=== PATIENT | female | born 1990 | race Caucasian/White ===

== ENCOUNTER 2022-12-30 12:25 | Emergency (ER) | payer OTHER, SELFPAY ==
--- NOTE | 2022-12-30 13:15 | RAD REPORT ---
EXAM DESCRIPTION: US - Abdomen Exam Limited - 12/30/2022 12:53 pm CLINICAL HISTORY: Abdominal pain. COMPARISON: None. FINDINGS: Patient was not NPO limiting evaluation somewhat. Gallbladder mildly contracted. Gallbladder wall not thickened. A gallstone is not seen The biliary tree is normal caliber. IMPRESSION: Unremarkable gallbladder ultrasound.
--- NOTE | 2022-12-30 13:21 | RAD REPORT ---
EXAM DESCRIPTION: [place] Single View12/30/2022 1:04 pm CLINICAL HISTORY: Shortness of breath COMPARISON: none FINDINGS: The lungs appear clear of acute infiltrate. The heart is normal size IMPRESSION: No acute abnormalities displayed
[2022-12-30 13:51] LABS: Specific Gravity 1.008 (1.005-1.030); Urine Bilirubin NEGATIVE (Negative); Urine Blood Negative (Negative); Urine Clarity Clear (Clear); Urine Color Colorless (Yellow); Urine Glucose NEGATIVE (Negative); Urine Protein NEGATIVE (Negative); Urine Urobilinogen Normal (Normal); Urine pH 5.5 (5.0-7.0)
[2022-12-30 13:53] LABS: Specific Gravity 1.008 (1.005-1.030)
[2022-12-30] MEDS ORDERED: KETOROLAC 30 MG/ML INJ ONE (14:02)
[2022-12-30] MEDS ORDERED: ONDANSETRON 4 MG/2 ML VIAL ONE (14:02)
[2022-12-30] MEDS ORDERED: FAMOTIDINE 20 MG/2 ML VIAL IV ONE (14:02)
[2022-12-30] MEDS ORDERED: NA CHLORIDE 0.9% 1,000 ML ONE (14:02)
[2022-12-30 14:10] LABS: Absolute Lymphocytes (CBC) 1.3 K/uL (0.7-4.9); Hematocrit 39.9 % (36.0-45.0); MCV 88.6 fL (80-100); MPV 7.9 fL (7.6-11.3); RBC Red Blood Cell Count 4.51 M/uL (3.86-4.86)
[2022-12-30 14:27] LABS: ALT/SGPT 22 U/L (13-56); Albumin 4.2 g/dL (3.4-5.0); Alkaline Phosphatase 45 U/L (45-117); BUN Blood Urea Nitrogen 15 mg/dL (7-18); Bicarbonate 27 mEq/L (21-32); Bilirubin Total 0.4 mg/dL (0.2-1.0); Glomerular Filtration Rate 82 ml/min (=/>90); Glucose Level 94 mg/dL (74-106); Lipase 54 U/L (13-75); Protein, Total 7.8 g/dL (6.4-8.2); Sodium Level 137 mEq/L (136-145)
[2022-12-30 14:28] LABS: AST/SGOT 14 U/L (15-37); Troponin High Sensitivity < 3.0 pg/mL (<58.9)
--- NOTE | 2022-12-30 15:41 | EDPHYS ---
Physician Documentation [facility] Name: Emani Wilson Age: 32 yrs Sex: Female : 1990 Arrival Date: 12/30/2022 Time: 12:25 Bed 11 Private MD: ED Physician Roman Hare HPI: 12/30 12:40 This 32 yrs old Female presents to ER via Ambulatory with complaints of Abdominal Pain. kb 12:40 The patient presents with abdominal pain in the epigastric area, in the upper abdomen. kb Onset: The symptoms/episode began/occurred 1 week(s) ago. The symptoms do not radiate. Associated signs and symptoms: Pertinent positives: nausea, Pertinent negatives: constipation, diarrhea, fever, vomiting. The symptoms are described as constant. Modifying factors: The symptoms are alleviated by nothing, the symptoms are aggravated by nothing. Severity of pain: At its worst the pain was moderate in the emergency department the pain is unchanged. The patient has not experienced similar symptoms in the past. The patient has not recently seen a physician. LMFT: 12:34 LMP 12/03/2022 aa5 Historical: - Allergies: 12:32 No Known Allergies; aa5 - PMHx: 12:32 "small leak in heart"; Hypoglycemia; Anxiety; aa5 - PSHx: 12:32 section; aa5 - Immunization history:: Adult Immunizations unknown. - Social history:: Smoking status: Patient denies any tobacco usage or history of. ROS: 12:40 Constitutional: Negative for fever, chills, and weight loss. kb 12:40 Abdomen/GI: Positive for abdominal pain, nausea. 12:40 All other systems are negative. Exam: 12:40 Constitutional: This is a well developed, well nourished patient who is awake, alert, kb and in no acute distress. Head/Face: Normocephalic, atraumatic. ENT: Moist Mucous membranes Cardiovascular: Regular rate and rhythm with a normal S1 and S2. No gallops, murmurs, or rubs. No pulse deficits. Respiratory: Respirations even and unlabored. No increased work of breathing. Talking in full sentences Skin: Warm, dry with normal turgor. Normal color. MS/ Extremity: Pulses equal, no cyanosis. Neurovascular intact. Full, normal range of motion. Neuro: Awake and alert, GCS 15, oriented to person, place, time, and situation. Moves all extremities. Normal gait. 12:40 Abdomen/GI: Inspection: abdomen appears normal, Bowel sounds: normal, Palpation: soft, in all quadrants, mild abdominal tenderness, in the epigastric area, right upper quadrant and left upper quadrant. 16:08 ECG was reviewed by the Attending Physician. kb Vital Signs: 12:31 BP 128 / 98; Pulse 105; Resp 19 S; Temp 98.2(TE); Pulse Ox 100% on R/A; Weight 62.14 kg aa5 (R); Height 5 ft. 1 in. (R); 15:19 BP 124 / 82; Pulse 94; Resp 16; Pulse Ox 99% ; ko1 12:31 Body Mass Index 25.89 (62.14 kg, 154.94 cm) aa5 MDM: 12:27 Patient medically screened. kb 12:40 Differential diagnosis: cholecystitis, Cholelithiasis, gastroesophageal reflux disease, kb non-specific abd pain. Data reviewed: vital signs, nurses notes. 15:39 Counseling: I had a detailed discussion with the patient and/or guardian regarding: the kb historical points, exam findings, and any diagnostic results supporting the discharge/admit diagnosis, lab results, radiology results, the need for outpatient follow up, a family practitioner, a coal trimmer, to return to the emergency department if symptoms worsen or persist or if there are any questions or concerns that arise at home. ED course: Pt nontoxic in appearance, feeling better, tolerating po intake. States she is ready to go home. Reviewed all diagnostic results and printed copy given. Educated on return precautions and need for follow up. 12/30 12:34 Order name: CBC with Diff kb 12/30 12:34 Order name: CMP; Complete Time: 14:56 kb 12/30 12:34 Order name: Lipase; Complete Time: 14:56 kb 12/30 12:34 Order name: Test, Urine; Complete Time: 13:54 kb 12/30 12:34 Order name: Urinalysis w/ reflexes; Complete Time: 13:54 kb 12/30 12:34 Order name: Troponin High Sensitivity; Complete Time: 14:56 kb 12/30 12:34 Order name: Abdomen Limited US; Complete Time: 13:16 kb 12/30 12:34 Order name: Chest Single View XRAY; Complete Time: 13:22 kb 12/30 12:34 Order name: EKG; Complete Time: 12:34 kb 12/30 12:34 Order name: IV Saline Lock; Complete Time: 13:53 kb 12/30 12:34 Order name: Labs collected and sent; Complete Time: 13:53 kb 12/30 12:34 Order name: EKG - Nurse/Tech; Complete Time: 14:37 kb EC:08 Rate is 69 beats/min. Rhythm is regular. QRS [place] is Normal. [place] interval is normal at kb 124 msec. QRS interval is normal at 86 msec. QT interval is normal at 424 msec. Administered Medications: 14:11 Drug: NS 0.9% IV 1000 ml Route: IV; Rate: 1 bolus; Site: left antecubital; ko1 14:11 Drug: TORadol - Ketorolac IVP 15 mg Route: IVP; Site: left antecubital; ko1 14:15 Drug: Famotidine IVP 20 mg Route: IVP; Site: left antecubital; ko1 14:15 Drug: Ondansetron IVP 4 mg Route: IVP; Site: left antecubital; ko1 Disposition Summary: 12/30/22 15:40 Discharge Ordered Location: Home kb Condition: Stable kb Diagnosis - Nausea with vomiting, unspecified kb - Upper abdominal pain, unspecified kb Followup: kb - With: Emergency Department - When: As needed - Reason: Worsening of condition Followup: kb - With: Private Physician - When: 2 - 3 days - Reason: Recheck today's complaints, Continuance of care, Re-evaluation by your physician Discharge Instructions: - Discharge Summary Sheet kb - Nausea and Vomiting, Adult, [id number] kb - Abdominal Pain, Adult, [id number] kb Forms: - Medication Reconciliation Form kb - Thank You Letter kb - Antibiotic Education kb - Prescription Opioid Use kb Prescriptions: - ondansetron 4 mg Oral Tablet,disintegrating - take 1 tablet by ORAL route every 6 hours As needed; 12 tablet; Refills: 0, kb Product Selection Permitted - dicyclomine 20 mg Oral Tablet - take 1 tablet by ORAL route 4 times per day As needed; 20 tablet; Refills: 0, kb Product Selection Permitted Signatures: Dispatcher [employer] EDMary Ellen Way FNP-C FNP-Ivania Sullivan, RN RN aa5 Joanna Casper, RN RN ko1
--- NOTE | 2022-12-30 15:41 | ER ---
Nurse's Notes [facility] Name: Emani Wilson Age: 32 yrs Sex: Female : 1990 Arrival Date: 12/30/2022 Time: 12:25 Bed 11 Private MD: Diagnosis: Nausea with vomiting, unspecified;Upper abdominal pain, unspecified Presentation: 12/30 12:31 Chief complaint: Patient states: abd pain for approximately 1 week ago. Pt reports aa5 nausea, denies vomiting. Coronavirus screen: nausea. Ebola Screen: Patient denies travel to an Ebola-affected area in the 21 days before illness onset. Initial Sepsis Screen: Does the patient meet any 2 criteria? No. Patient's initial sepsis screen is negative. Does the patient have a suspected source of infection? No. Patient's initial sepsis screen is negative. Risk Assessment: Do you want to hurt yourself or someone else? Patient reports no desire to harm self or others. Onset of symptoms was November 2022. 12:31 Acuity: VERA 3 aa5 12:31 Method Of Arrival: Ambulatory aa5 STRUCTURAL ARCHITECT: 12:34 LMP 12/03/2022 aa5 Historical: - Allergies: 12:32 No Known Allergies; aa5 - PMHx: 12:32 "small leak in heart"; Hypoglycemia; Anxiety; aa5 - PSHx: 12:32 section; aa5 - Immunization history:: Adult Immunizations unknown. - Social history:: Smoking status: Patient denies any tobacco usage or history of. Screenin:00 [facility] ED Fall Risk Assessment (Adult) History of falling in the last 3 months, ko1 including since admission No falls in past 3 months (0 pts) Confusion or Disorientation No (0 pts) Intoxicated or Sedated No (0 pts) Impaired Gait No (0 pts) Mobility Assist Device Used No (0 pt) Altered Elimination No (0 pt) Score/Fall Risk Level 0 - 2 = Low Risk Oriented to surroundings, Maintained a safe environment, Educated pt \\T\\ family on fall prevention, incl call for assistance when getting out of bed, Assessed \\T\\ reinforced patient's understanding of fall precautions, Provided non-skid footwear, Hourly rounding (assess needs \\T\\ fall precautionary measures) done, Used ambulatory aids as needed (educated on \\T\\ assisted with), Used gait belt as appropriate. Abuse screen: Denies threats or abuse. Denies injuries from another. Nutritional screening: No deficits noted. Tuberculosis screening: No symptoms or risk factors identified. Assessment: 14:00 General: Appears in no apparent distress. uncomfortable, Behavior is calm, cooperative, ko1 appropriate for age. Pain: Complains of pain in abdomen. Neuro: No deficits noted. Cardiovascular: No deficits noted. Respiratory: No deficits noted. GI: Reports lower abdominal pain, upper abdominal pain. : No deficits noted. EENT: No deficits noted. Derm: No deficits noted. Musculoskeletal: No deficits noted. Vital Signs: 12:31 BP 128 / 98; Pulse 105; Resp 19 S; Temp 98.2(TE); Pulse Ox 100% on R/A; Weight 62.14 kg aa5 (R); Height 5 ft. 1 in. (R); 15:19 BP 124 / 82; Pulse 94; Resp 16; Pulse Ox 99% ; ko1 12:31 Body Mass Index 25.89 (62.14 kg, 154.94 cm) aa5 ED Course: 12:26 Patient arrived in ED. brian 12:26 Roman Hare MD is Attending Physician. brian 12:26 Mary Ellen Matamoros FNP-C is PHCP. kb 12:31 Arm band placed on. aa5 12:32 Triage completed. aa5 12:55 Abdomen Limited US In Process Unspecified. EDMS 13:06 Chest Single View XRAY In Process Unspecified. EDMS 13:36 Joanna Casper, RN is Primary Nurse. ko1 13:44 Test, Urine Sent. ko1 13:44 Urinalysis w/ reflexes Sent. ko1 13:45 Inserted saline lock: 22 gauge in left antecubital area, using aseptic technique. Blood ko1 collected. 13:53 CBC with Diff Sent. ko1 13:53 CMP Sent. ko1 13:53 Lipase Sent. ko1 13:53 Troponin High Sensitivity Sent. ko1 14:00 Patient has correct armband on for positive identification. Bed in low position. Call ko1 light in reach. Side rails up X 1. Pulse ox on. NIBP on. Warm blanket given. 14:00 No provider procedures requiring assistance completed. ko1 15:58 IV discontinued, intact, bleeding controlled, No redness/swelling at site. Pressure ko1 dressing applied. Administered Medications: 14:11 Drug: NS 0.9% IV 1000 ml Route: IV; Rate: 1 bolus; Site: left antecubital; ko1 14:11 Drug: TORadol - Ketorolac IVP 15 mg Route: IVP; Site: left antecubital; ko1 14:15 Drug: Famotidine IVP 20 mg Route: IVP; Site: left antecubital; ko1 14:15 Drug: Ondansetron IVP 4 mg Route: IVP; Site: left antecubital; ko1 Medication: 14:00 VIS not applicable for this client. ko1 Outcome: 15:40 Discharge ordered by . partha 15:58 Discharged to home ambulatory, with family. ko1 15:58 Condition: improved 15:58 Discharge instructions given to patient, family, Instructed on discharge instructions, follow up and referral plans. medication usage, Demonstrated understanding of instructions, follow-up care, medications, Prescriptions given X 2. 15:58 Patient left the ED. ko1 Signatures: Dispatcher [employer] EDMS Mary Ellen Matamoros, NEEDLEWORKER-C NEEDLEWORKER-Roman Mckeon MD MD cha Calderon, Audri, RN RN aa5 Joanna Casper, RN RN ko1
[2022-12-30 16:03] VITALS: TEMP 98.2
[2022-12-30 16:05] VITALS: BP 124/82; O2SAT 99
== END 2022-12-30 15:58 | disposition home or self-care (01) ==
LOC: ER 12:25
DX: R11.2 Nausea with vomiting, unspecified (principal); R10.13 Epigastric pain
CPT/HCPCS: 36415; 71045; 76705; 80053; 81003; 81025; 83690; 84484; 85025; 96374; 96375; 99284; J2405; J7030

== ENCOUNTER 2023-01-20 22:26 | Emergency (ER) | payer SELFPAY ==
[2023-01-20 23:44] LABS: Specific Gravity 1.016 (1.005-1.030); Urine Bilirubin NEGATIVE (Negative); Urine Blood Negative (Negative); Urine Clarity Clear (Clear); Urine Color Colorless (Yellow); Urine Glucose NEGATIVE (Negative); Urine Protein NEGATIVE (Negative); Urine Urobilinogen Normal (Normal)
[2023-01-20 23:51] LABS: Specific Gravity 1.016 (1.005-1.030)
--- NOTE | 2023-01-21 00:18 | ER ---
Nurse's Notes [facility] Name: Emani Wilson Age: 32 yrs Sex: Female : 1990 Arrival Date: 01/20/2023 Time: 22:26 Bed 17 Private MD: Diagnosis: Urinary frequency Presentation: 01/20 22:34 Chief complaint: Patient states: I have been having frequency urination and feeling ha1 discomfort when urinating. 22:34 Coronavirus screen: Vaccine status: Patient reports receiving the 1st dose of the Covid ha1 vaccine. J and J. Ebola Screen: No symptoms or risks identified at this time. Initial Sepsis Screen: Does the patient meet any 2 criteria? No. Patient's initial sepsis screen is negative. Does the patient have a suspected source of infection? No. Patient's initial sepsis screen is negative. Risk Assessment: Do you want to hurt yourself or someone else? Patient reports no desire to harm self or others. Onset of symptoms was January 21, 2023. 22:34 Method Of Arrival: Ambulatory ha1 22:34 Acuity: VERA 5 ha1 22:34 Chief complaint:. Chief complaint: Patient states: I have been having discomfort when ha1 urinating and I think I have a UTI. Triage Assessment: 22:34 General: Appears comfortable, Behavior is calm, cooperative. Pain: Complains of pain in ha1 low back area Pain does not radiate. Pain currently is 4 out of 10 on a pain scale. Neuro: Level of Consciousness is awake, alert, obeys commands, Oriented to person, place, time, situation. Cardiovascular: Patient's skin is warm and dry. Respiratory: Airway is patent Respiratory effort is even, unlabored, Respiratory pattern is regular, symmetrical. GI: No signs and/or symptoms were reported involving the gastrointestinal system. : Reports urinary frequency. Derm: Skin is pink, warm \\T\\ dry. Musculoskeletal: Circulation, motion, and sensation intact. Range of motion: intact in all extremities. Historical: - Allergies: 22:34 No Known Allergies; ha1 - PMHx: 22:34 "small leak in heart"; Anxiety; HYPOGLYCEMIA; ha1 - PSHx: 22:34 section; ha1 - Immunization history:: Adult Immunizations up to date. - Social history:: Smoking status: Patient denies any tobacco usage or history of. Screenin/25 00:16 [facility] ED Fall Risk Assessment (Adult) History of falling in the last 3 months, ha1 including since admission No falls in past 3 months (0 pts) Confusion or Disorientation No (0 pts) Score/Fall Risk Level 0 - 2 = Low Risk Oriented to surroundings, Maintained a safe environment, Educated pt \\T\\ family on fall prevention, incl call for assistance when getting out of bed, Hourly rounding (assess needs \\T\\ fall precautionary measures) done. Abuse screen: Denies threats or abuse. Denies injuries from another. Nutritional screening: No deficits noted. Tuberculosis screening: No symptoms or risk factors identified. Assessment: 01/20 22:34 Reassessment: see triage assessment. ha1 23:34 Reassessment: Patient and/or family updated on plan of care and expected duration. Pain ha1 level reassessed. Patient is alert, oriented x 3, equal unlabored respirations, skin warm/dry/pink. 01/21 00:23 Reassessment: Patient and/or family updated on plan of care and expected duration. Pain ha1 level reassessed. Patient is alert, oriented x 3, equal unlabored respirations, skin warm/dry/pink. Vital Signs: 01/20 22:34 BP 118 / 74; Pulse 85; Resp 16 S; Pulse Ox 100% on R/A; Weight 61.23 kg; Height 5 ft. 0 ha1 in. ; 23:30 BP 117 / 72; Pulse 75; Resp 18 S; Temp 98.1(O); Pulse Ox 100% on R/A; ha1 22:34 Body Mass Index 26.37 (61.23 kg, 152.4 cm) ha1 ED Course: 22:29 Patient arrived in ED. ag3 22:29 Mary Ellen Matamoros FNP-C is PHCP. kb 22:29 Alexandro Costa MD is Attending Physician. kb 22:34 Patient has correct armband on for positive identification. Placed in gown. Bed in low ha1 position. Call light in reach. Side rails up X 1. 22:34 Arm band placed on right wrist. ha1 22:35 Naomi Guadalupe, KI is Primary Nurse. ha1 23:34 Test, Urine Sent. ha1 23:34 Urinalysis w/ reflexes Sent. ha1 01/21 00:12 Triage completed. ha1 00:21 No provider procedures requiring assistance completed. Patient did not have IV access ha1 during this emergency room visit. Administered Medications: No medications were administered Medication: 00:22 VIS not applicable for this client. ha1 Outcome: 00:17 Discharge ordered by . partha 00:22 Discharged to home ambulatory. ha1 00:22 Condition: stable 00:22 Discharge instructions given to patient, Instructed on discharge instructions, follow up and referral plans. Demonstrated understanding of instructions, follow-up care. 00:24 Patient left the ED. ha1 Signatures: Mary Ellen Matamoros, CARETAKER GROUNDS-C CARETAKER GROUNDS-Irene Edwards ag3 Naomi Guadalupe, RN RN ha1
--- NOTE | 2023-01-21 00:18 | EDPHYS ---
Physician Documentation [facility] Name: Emani Wilson Age: 32 yrs Sex: Female : 1990 Arrival Date: 01/20/2023 Time: 22:26 Bed 17 Private MD: ED Physician Alexandro Costa HPI: 01/21 00:16 This 32 yrs old Female presents to ER via Ambulatory with complaints of Urinary kb Frequency. 00:16 The patient presents with pelvic pain, urinary symptoms, frequency. Onset: The kb symptoms/episode began/occurred 1 week(s) ago. Modifying factors: The symptoms are alleviated by nothing, the symptoms are aggravated by nothing. Associated signs and symptoms: Pertinent positives: urinary frequency. Severity of symptoms: At their worst the symptoms were mild, moderate, in the emergency department the symptoms are unchanged. The patient has not experienced similar symptoms in the past. The patient has not recently seen a physician. Pt reports urinary frequency, pelvic pain, low back pain for one week. . Historical: - Allergies: 01/20 22:34 No Known Allergies; ha1 - PMHx: 22:34 "small leak in heart"; Anxiety; HYPOGLYCEMIA; ha1 - PSHx: 22:34 section; ha1 - Immunization history:: Adult Immunizations up to date. - Social history:: Smoking status: Patient denies any tobacco usage or history of. ROS: 01/21 00:12 Constitutional: Negative for fever, chills, and weight loss. kb Back: Positive for pain at rest, of the low back area. : Positive for urinary symptoms, pelvic pain, urinary frequency. All other systems are negative. Exam: 00:12 Constitutional: This is a well developed, well nourished patient who is awake, alert, kb and in no acute distress. Head/Face: Normocephalic, atraumatic. ENT: Moist Mucous membranes Cardiovascular: Regular rate and rhythm with a normal S1 and S2. No gallops, murmurs, or rubs. No pulse deficits. Respiratory: Respirations even and unlabored. No increased work of breathing. Talking in full sentences Abdomen/GI: Soft, non-tender. No distention Back: No spinal tenderness. No costovertebral tenderness. Full range of motion. Skin: Warm, dry with normal turgor. Normal color. MS/ Extremity: Pulses equal, no cyanosis. Neurovascular intact. Full, normal range of motion. Neuro: Awake and alert, GCS 15, oriented to person, place, time, and situation. Moves all extremities. Normal gait. Vital Signs: 01/20 22:34 BP 118 / 74; Pulse 85; Resp 16 S; Pulse Ox 100% on R/A; Weight 61.23 kg; Height 5 ft. 0 ha1 in. ; 23:30 BP 117 / 72; Pulse 75; Resp 18 S; Temp 98.1(O); Pulse Ox 100% on R/A; ha1 22:34 Body Mass Index 26.37 (61.23 kg, 152.4 cm) ha1 MDM: 22:34 Patient medically screened. kb 01/21 00:13 Differential diagnosis: uti, pyelonephritis, kidney stone, ovarian cyst. Data reviewed: kb vital signs, nurses notes. Test considered but Not performed: Labs: cbc, cmp considered, but pt is nontoxic in appearance, vss, tolerating po intake. Ultrasound Transvaginal US considered, but pt prefers not to have that done at this time. Has appt at [facility] tomorrow that she will keep. Counseling: I had a detailed discussion with the patient and/or guardian regarding: the historical points, exam findings, and any diagnostic results supporting the discharge/admit diagnosis, lab results, the need for outpatient follow up, an OB/Gyne specialist, to return to the emergency department if symptoms worsen or persist or if there are any questions or concerns that arise at home. 01/20 23:21 Order name: Test, Urine; Complete Time: 00:02 kb 01/20 23:21 Order name: Urinalysis w/ reflexes; Complete Time: 00:02 kb Administered Medications: No medications were administered Disposition Summary: 01/21/23 00:17 Discharge Ordered Location: Home kb Condition: Stable kb Diagnosis - Urinary frequency kb Followup: kb - With: Emergency Department - When: As needed - Reason: Worsening of condition Followup: kb - With: Private Physician - When: 2 - 3 days - Reason: Recheck today's complaints, Continuance of care, Re-evaluation by your physician Discharge Instructions: - Discharge Summary Sheet kb - Urinary Frequency, Adult kb Forms: - Medication Reconciliation Form kb - Thank You Letter kb - Antibiotic Education kb - Prescription Opioid Use kb Signatures: Dispatcher [facility] Mary Ellen Khanna, WELDER MACHINE OPERATOR-C WELDER MACHINE OPERATOR-Naomi Wooten, RN RN ha1
[2023-01-21 00:40] VITALS: O2SAT 100
[2023-01-21 00:41] VITALS: BP 117/72; TEMP 98.1
== END 2023-01-21 00:24 | disposition home or self-care (01) ==
LOC: ER 22:26
DX: R35.0 Frequency of micturition (principal); R10.2 Pelvic and perineal pain; M54.50 Low back pain, unspecified
CPT/HCPCS: 81003; 81025; 99283